=== PATIENT | female | born 1940 | race Caucasian/White ===

== ENCOUNTER 2019-08-18 22:21 | Emergency (ER) | payer OTHER ==
[~2019-08-18] VITALS: Ht 160 cm; Wt 56.7 kg
--- NOTE | 2019-08-18 22:21 | NUR ---
PT ARACELI HUMMELS. TAKEN TO BED 4
[2019-08-18 22:26] VITALS: BP 136/84
--- NOTE | 2019-08-18 22:31 | NUR ---
BIB AMBULANCE FROM [facility] [place]/ C/O LT WRIST PAIN S/P SLIP AND FALL AT 1330 TODAY. +CMS, NO BROKEN SKIN, NOTICIBLE SWELLING AND BRUISING. 8/10 SHARP PAIN. MEDHX: HYPERLIPIDEMIA, HTN, DM ALLERGIES: DENIES
--- NOTE | 2019-08-19 00:01 | NUR ---
G[place] RE[place] SLIP BRIDGE O[place] [facility] [place] UP ON [place]SPORT BACK TO FACILITY FOR PT.
--- NOTE | 2019-08-19 00:10 | NUR ---
APPLIED SUGAR TONG SPLINT TO LEFT ARM WITHOUT ANY ISSUES
--- NOTE | 2019-08-19 01:10 | NUR ---
SPOKE TO PTS DAUGHTER, SHE WAS UNDER IMPRESSION [facility] WAS PROVIDING TRANSPORT. ATTEMPTED TO CALL DAUGHTER BACK BUT NO ANSWER. PLUG CUTTER AT [facility] MADE AWARE. CALLED RODENT EXTERMINATOR FOR TAXI VOUCHER. ETA 30-45 MIN.
--- NOTE | 2019-08-19 01:22 | NUR ---
REPORT GIVEN TO RADHA. TRANSFER OF CARE AT THIS TIME.
--- NOTE | 2019-08-19 01:22 | NUR ---
RECEIVED REPORT PAULINE WARNER. PT IN BED RESTING, STABLE AT THIS TIME. WILL CONTINUE TO MONITOR CLOSELY.
[2019-08-19 01:30] VITALS: BP 136/84
--- NOTE | 2019-08-19 01:30 | NUR ---
DISCHARGE PAPERS GIVEN TO PT. PT STATES PAIN TOLLERABLE. SPLINT IN PLACE. NO C/O NUMBNESS/TINGLING. CAP REFILL <3 SEC. INSTRUCTED TO F/U WITH PCP AND WHEN TO RETURN TO ER. FACILITY AWARE OF PT'S STABLE CONTITION AND RETURN. PROVIDED WITH TAXY VOUCHER. WHEEL CHAIR ASSISTED TO TAXY. ALL QUESTIONS ANSWERED.
== END 2019-08-19 01:30 | disposition home or self-care (01) ==
LOC: MED 22:21
DX: S52.612A Displaced fracture of left ulna styloid process, initial encounter for closed fracture (principal); I10 Essential (primary) hypertension; S52.592A Other fractures of lower end of left radius, initial encounter for closed fracture; E11.9 Type 2 diabetes mellitus without complications; E78.5 Hyperlipidemia, unspecified; W18.39XA Other fall on same level, initial encounter; Y93.89 Activity, other specified; Y92.89 Other specified places as the place of occurrence of the external cause; Y99.8 Other external cause status
CPT/HCPCS: 29125; 73110; 99283; Q0092

== ENCOUNTER 2021-06-07 10:58 | Inpatient (IN) | payer OTHER, MEDICAID, SELFPAY ==
[~2021-06-07] VITALS: Ht 152.4 cm; Wt 63.5 kg
[2021-06-07 10:58] VITALS: BP 65/32
--- NOTE | 2021-06-07 10:58 | NUR ---
81 Y/O FEMALE BIBA FROM [facility] C/O ALOC. PER MEDICS, FACILITY STATED THAT SHE WAS LAST SEEN NORMAL LAST NIGHT. HER NORMAL IS GCS 14 A/O X2- SELF AND PLACE, TALKING WITH EYES OPENING. WHEN MEDICS ARRIVED, PT DID NOT TALK OR OPEN EYES. FACILITY STATES THAT HER SUGAR WAS 50 THIS MORNING AND GAVE HER "SUGAR". MEDICS ACCUCHECK 303. ON ARRIVAL TO HOSPITAL, PT IS A/O X2- SELF AND PLACE GCS 13 WITH PERIODS OF CONFUSION AND ONLY OPENING EYES TO VOICE/PAIN. BS 286. +VOMITING PMH:HTN, DM2, HYPERLIPIDEMIA, CKD STAGE 3, CARPAL TUNNEL SYNDROME, UNSPECIFIED OSTEOARTHRITIS, METABOLIC ENCEPHALOPATHY, GLAUCOMA, DEMENTIA
--- NOTE | 2021-06-07 10:59 | NUR ---
BIBA TO BED 10
[2021-06-07] MEDS ORDERED: NACL 0.9% 500 ML IV SCH (11:15)
[2021-06-07] MEDS ORDERED: NACL 0.9% 500 ML IV ONE (11:20)
[2021-06-07] MEDS ORDERED: ONDANSETRON 4 MG/2 ML VIAL ONE (11:21)
[2021-06-07] MEDS ORDERED: ONDANSETRON 4 MG/2 ML VIAL IVP ONE (11:25)
--- NOTE | 2021-06-07 11:33 | NUR ---
RT at bedside for ABGs, 87% on RA, RT placed on 3L NC. SPO2 at 95%. Will continue to monitor.
--- NOTE | 2021-06-07 12:14 | NUR ---
PT VOMITTED X3 TIMES SINCE ARRIVAL TO ED. VOMIT YELLOW IN COLOR Addendum: 06/07/21 at 1225 by [email or web address] MADE AWARE. ORDERED REGLAN TO HELP CONTROL VOMITTING.
--- NOTE | 2021-06-07 12:14 | NUR ---
LAB WORK DRAWN BEDSIDE. COVID DEO TAKEN BEDSIDE. LAB WORK AND COVID DEO WALKED OVER TO LAB BY PAULINE
[2021-06-07] MEDS ORDERED: METOCLOPRAMIDE 10 MG/2 ML INJ VIAL IVP ONE (12:15)
--- NOTE | 2021-06-07 12:30 | NUR ---
CONTINUING EDUCATION INSTRUCTOR AT PT BEDSIDE.
--- NOTE | 2021-06-07 12:34 | NUR ---
JOSE CARPENTER TO ACCOMPANY PT FOR CT SCAN WITH
--- NOTE | 2021-06-07 12:51 | NUR ---
Spoke with [facility] weekend receptionist Darcie for pt packet to be faxed over.
--- NOTE | 2021-06-07 12:56 | NUR ---
PT TO ER BED 10.
[2021-06-07 13:02] LABS: BASOPHILS % (AUTO) 0.3 % (0.0-2.0); EOSINOPHILS % (AUTO) 0.4 % (0.0-4.0); HEMATOCRIT 39.5 % (36-48); HEMOGLOBIN 12.8 g/dL (12.0-16.0); LYMPHOCYTES # (AUTO) 1.3 K/uL (2.5-16.5); MEAN CORPUSCULAR HEMOGLOBIN 31 pg (27-31); MEAN CORPUSCULAR HGB CONC 32 g/dL (33-37); MEAN CORPUSCULAR VOLUME 95.9 fL (80-94); MONOCYTES # (AUTO) 0.3 K/uL (0.8-1.0); MONOCYTES % (AUTO) 3.3 % (1.7-9.3); NEUTROPHILS # (AUTO) 7.4 K/uL (1.8-7.7); PLATELET COUNT (AUTO) 255 K/uL (140-450); RED BLOOD CELL COUNT(AUTO) 4.12 MIL/uL (4.20-5.40); RED CELL DISTRIBUTION WIDTH 13.7 % (11.6-13.7)
[2021-06-07] MEDS ORDERED: PIPERACILLIN/TAZOBACTAM 3.375 GM in DEXTROSE 5% 50 ML IV ONE (13:10)
[2021-06-07] MEDS ORDERED: NACL 0.9% 1,000 ML IV ONE ×2 (13:10→16:05)
[2021-06-07] MEDS ORDERED: PIPERACILLIN/TAZOBACTAM 3.375 GM VIAL IV ONE (13:15)
--- NOTE | 2021-06-07 13:16 | NUR ---
LAB BEDSIDE WITH PT
[2021-06-07 13:25] LABS: APPEARANCE,URINE CLEAR (CLEAR); BILIRUBIN,URINE NEGATIVE (NEGATIVE); BLOOD, URINE NEGATIVE (NEGATIVE); COLOR,URINE YELLOW (YELLOW); LEUKOCYTE ESTERASE ,URINE NEGATIVE (NEGATIVE); NITRITE, URINE NEGATIVE (NEGATIVE); PH,URINE 5.5 (5.0-9.0); UGLUCOSE NEGATIVE (NEGATIVE)
[2021-06-07] MEDS ORDERED: metroNIDAZOLE 500 MG/NS PREMIX 100 ML IV ONE (13:55)
[2021-06-07 14:03] LABS: ALBUMIN 3.3 g/dL (3.4-5.0); ANION GAP 24.7 (8-16); ASPARTATE AMINOTRANSFERASE 37 U/L (15-37); CARBON DIOXIDE 20.5 mmol/L (21-32); CHLORIDE 102 mmol/L (98-107); GLUCOSE 245 mg/dL (74-106); SODIUM SERUM 141 mmol/L (136-145); TOTAL BILIRUBIN 1.5 mg/dL (0.0-1.0); UREA NITROGEN, BLOOD 44 mg/dL (7-18)
[2021-06-07 14:06] LABS: POTASSIUM 6.2 mmol/L (3.5-5.1)
--- NOTE | 2021-06-07 14:10 | NUR ---
Changed pt into clean gown, clean bedsheets, repositioned with HOB elevated. VSS, will continue to monitor.
[2021-06-07 14:19] LABS: PROTHROMBIN TIME 11.6 secs (10.8-13.4)
--- NOTE | 2021-06-07 14:24 | NUR ---
Lung sounds auscultated, crackles present bilaterally, urine output color dark celio (coca cola), skin pale on assessment with loose black stool, pt increasingly becoming ALOC, currently A&ox1 removing NRB spo2 81%, reapplied spo2 95%. made aware. RT at pt bedside.
--- NOTE | 2021-06-07 14:28 | NUR ---
REVIEW CONSULTANT CALLED TO BEDSIDE ED ADMITTING DX: ALOC PATIENT PRESENTING WITH INCREASED WOB AT 28 BPM DECREASED SATURATION 85%-87% ON SUPPLEMENTAL OXYGEN AT 15 LPM VIA NON REBREATHER DUE TO DX PATIENT INTERMIITENTLY PULLING OXYGEN MASK OFF BREATH SOUNDS COARSE RHONCHI BILATERAL REVIEWED FOREMENTIONED FINDING WITH DR. SYD HONG REVIEW CONSULTANT AND ERMD CONSENSUS TO NASO TRACHEAL SUCTION WITH OBTAINMENT OF SPUTUM SAMPLE USING STERILE TECHNIQUE LUBRICATED THE DISTAL END OF A 14 FR SUCTION CATHETER INSERTED INTO LEFT NASAL SEPTUM THROUGH TO OROPHRAYNGEAL/PULMONARY REGION OBTAINED MOERATE AMOUNTS OF SEMI THICK YELLOW WITH BLOOD TINGE SECRETIONS PRE AND POST HYPEROXYGENATION PROVIDED TOLERATED PROCEDURE WELL WITHOUT ADVERSE REACTIONS NOTED
--- NOTE | 2021-06-07 15:11 | NUR ---
BEDSIDE SPEAKING WITH PT DAUGHTER. PROVIDING UPDATE ON PT STATUS
--- NOTE | 2021-06-07 15:15 | NUR ---
STATED PT IS DNR. PT DAUGHTER ON WAY TO HOSPITAL WITH PAPERWORK Addendum: 06/07/21 at 1611 by [email or web address] PER ADMITTING MD DR. TERRY Addendum: 06/07/21 at 1619 by [email or web address] PER ED MD DR. BARENTT, NOT ADMITTING MD DR. TERRY
--- NOTE | 2021-06-07 15:26 | NUR ---
Changed pt into clean gown, sheets, repositioned for comfort. rectal temperature reading of 94.3F, Dr. Cowan made aware at this time.
--- NOTE | 2021-06-07 15:40 | NUR ---
Dr. Steward with pt daughter and power of trust and estates attorney, DNR status confirmed at this time.
--- NOTE | 2021-06-07 16:55 | NUR ---
PT ARRIVED ON UNIT VIA GURNEY. PT ON NON REBREATHER 15 L PTS VITALS WERE TAKEN MD AWARE.
--- NOTE | 2021-06-07 17:04 | NUR ---
Patient will be admitted to care of DR SHASHANK TERRY. Admited to TELE. Will go to room 124A. Belongings list completed. Report to PAULINE PRUETT.
--- NOTE | 2021-06-07 17:35 | NUR ---
MD SPOKE TO FAMILY REGARDING CARE PLAN. FAMILY VERBALIZED UNDERSTANDING. ORDERS RECEIVED AND WILL BE CARRIED THROUGH
[2021-06-07] MEDS ORDERED: MORPHINE SULFATE 50 MG in NACL 0.9% 45 ML IV PRN (17:45)
[2021-06-07] MEDS ORDERED: MORPHINE SULFATE 2 MG/ML SYR IVP PRN ×2 (18:50→18:55)
--- NOTE | 2021-06-07 18:59 | NUR ---
FLACC SCORE (0). PRN MEDICATION GIVEN PER MD ORDER. PT AND FAMILY EDUCATED. THEY VERBALIZED UNDERSTNADING. PT REQUEST MORPHINE DRIP. PHARMACY CONTACTED. AWAITING DRIP
--- NOTE | 2021-06-07 19:18 | NUR ---
PT ENDORSED TO SYRUPER RN FOR CONTINUITY OF CARE. FAMILY AT BEDSIDE
--- NOTE | 2021-06-07 19:27 | NUR ---
PT STARTED ON MORPHINE DRIP. DOUBLE RN VERIFICATION. PT TOLERATING WELL. PT ENDORSED FOR CONTINUITY OF CARE
[2021-06-07 20:00] VITALS: BP 46/23
--- NOTE | 2021-06-07 20:00 | NUR ---
RECEIVED BEDSIDE REPORT FROM DAY RN REGARDING THE PATIENT FOR CONTINUITY OF CARE. RECEIVED PATIENT LAYING IN BED , OBTUNDED, NON VERBAL. PATIENT WAS JUST STARTED ON MORPHINE DRIP @ 2 MG/HR, FOR COMFORT MEASURES ORDERED. BP 46/23, HR-40, TEMP-86.5, SATING 97% ON 15L/NRB. SLOW BRADYCARDIA ON PORT CRANE OPERATOR, HR-42. PT PALE LOOKING AND NOTED MOTTLED ON BILATERAL HANDS AND FEET. FAMILY AT THE BEDSIDE. CALL LIGHT WITHIN REACH. WILL CONTINUE POC AND MONITORING.
[2021-06-07] MEDS ORDERED: PIPERACILLIN/TAZOBACTAM 2.25 GM in DEXTROSE 5% 50 ML IV SCH (21:00)
[2021-06-07] MEDS ORDERED: PIPERACILLIN/TAZOBACTAM 3.375 GM in DEXTROSE 5% 50 ML IV SCH (21:00)
[2021-06-07] MEDS ORDERED: metroNIDAZOLE 500 MG/NS PREMIX 100 ML IV SCH (22:00)
--- NOTE | 2021-06-07 22:00 | NUR ---
PT HEART RATE REMAINED ON 40'S. REPOSITIONED PATIENT FOR COMFORT. MORPHINE DRIP INFUSING ORDERED. WILL CONTINUE TO OBSERVE.
--- NOTE | 2021-06-07 23:20 | NUR ---
CALLED ER TO COME AND PRONOUNCE THE PATIENT . DR TRUONG REECE CAME AND PRONOUNCED THE PATIENT .
--- NOTE | 2021-06-07 23:30 | NUR ---
CALLED [facility] AND MADE AWARE OF THE PATIENT EXPIRATION.
--- NOTE | 2021-06-07 23:37 | NUR ---
PER PATIENT FAMILY THEY WANTED THE PT TO GO TO [facility] LOCATED IN [place] . CALLED [facility] AND MADE AWARE OF THE PATIENT EXPIRATION. [facility] ALSO SPOKE TO THE PATIENT DAUGHTER BERTRAND PARIS.
--- NOTE | 2021-06-07 23:45 | NUR ---
CALLED [employer] OFFICE AND MADE AWARE OF THE PATIENT EXPIRATION. SPOKE WITH HARRISON PETIT.
--- NOTE | 2021-06-08 00:30 | NUR ---
POST MORTEM CARE PROVIDED. DISCONTINUED ALL THE IV'S AND OROURKE CATHETER . ALL PATIENT BELONGINGS GIVEN TO THE PATIENT FAMILY INCLUDING CLOTHES, DENTURES, 3 RINGS AND A YELLOW WATCH.
--- NOTE | 2021-06-08 01:10 | NUR ---
MIGNON PETIT CAME AND PICKED UP THE PATIENTS BODY.
== END 2021-06-07 23:20 | DRG 871 ==
LOC: MED 10:58 → MTU 16:16
DX: A41.9 Sepsis, unspecified organism (principal); R65.21 Severe sepsis with septic shock; J96.00 Acute respiratory failure, unspecified whether with hypoxia or hypercapnia; N17.0 Acute kidney failure with tubular necrosis; K92.2 Gastrointestinal hemorrhage, unspecified; I31.3 Pericardial effusion (noninflammatory); E44.1 Mild protein-calorie malnutrition; Z66 Do not resuscitate; E11.22 Type 2 diabetes mellitus with diabetic chronic kidney disease; E11.649 Type 2 diabetes mellitus with hypoglycemia without coma; I12.9 Hypertensive chronic kidney disease with stage 1 through stage 4 chronic kidney disease, or unspecified chronic kidney disease; N18.9 Chronic kidney disease, unspecified; Z20.822 Contact with and (suspected) exposure to COVID-19; K52.9 Noninfective gastroenteritis and colitis, unspecified; E87.5 Hyperkalemia; K56.41 Fecal impaction; E66.9 Obesity, unspecified; E86.0 Dehydration; G31.9 Degenerative disease of nervous system, unspecified; R62.7 Adult failure to thrive; D69.2 Other nonthrombocytopenic purpura; K64.4 Residual hemorrhoidal skin tags; Z68.27 Body mass index [BMI] 27.0-27.9, adult; I46.9 Cardiac arrest, cause unspecified
CPT/HCPCS: 36415; 36600; 70450; 71045; 80053; 81003; 82550; 82553; 82803; 83605; 83880; 84484; 85025; 85610; 85730; 86886; 86900; 86901; 87040; 87070; 87086; 87205; 89220; 93005; 96365; 96367; 96375; 99291; J2270; J2405; J2543; J2765; J3490; J7060